=== PATIENT | female | born 1960 ===

== ENCOUNTER 2022-05-20 14:22 | Outpatient (CLI) | payer OTHER ==
[2022-05-20 16:22] LABS: Alanine Aminotransferase 41 units/L (7-56); Albumin 4.8 g/dL (3.9-5)
[2022-05-20 16:30] LABS: Bilirubin,Direct < 0.2 mg/dL (0-0.2)
== END 2022-05-20 14:23 | disposition home or self-care (01) ==
LOC: LABHHL 14:22
PROVIDERS: ATTEND Internal Medicine
DX: R94.5 Abnormal results of liver function studies (principal); E03.9 Hypothyroidism, unspecified
CPT/HCPCS: 36415; 80076; 84443